=== PATIENT | female | born 1940 | race Caucasian/White ===

== ENCOUNTER 2020-09-05 07:50 | Outpatient (CLI) | payer MEDICARE, BC ==
--- NOTE | 2020-09-05 10:02 | BD ---
DEXA BONE DENSITY STUDY: HISTORY: Postmenopausal. FINDINGS: Lumbar Spine: BMD (g/cm2) L1 0.946 T-Score: -0.4 L2 1.009 T-Score: -0.2 L3 1.012 T-Score: -0.7 L4 0.924 T-Score: -1.2 L1-L4 0.971 T-Score: -0.7 Femoral Neck: 0.637 T-Score: -1.9 Total Femur: -1.3 T-Score: Impression: 1. Osteopenia of the left femoral neck and normal density of the lumbar spine. 2. Ten-year fracture risk of a major osteoporotic fracture 15% and of a hip fracture 4%. These frac ture probabilities are calculated for an untreated patient. POS: [place]
--- NOTE | 2020-09-05 11:32 | MMO ---
Bilateral MAMMO Bilat Screen [facility]. CLINICAL HISTORY: Patient is 80 years old and is seen for screening. The patient has the following family history of breast cancer: sister, at age 65. The patient has a history of ovarian cancer at age 43. The patient has a history of right Excisional Biopsy at age 77 and left Excisional Biopsy in 25 YEARS AGO. VIEWS: The views performed were: bilateral craniocaudal with tomosynthesis and bilateral mediolateral oblique with tomosynthesis. FILMS COMPARED: The present examination has been compared to prior imaging studies performed at [facility] [place] on 06/21/2018, 07/05/2018, 07/09/2018 and 08/29/2019. This study has been interpreted with the assistance of computer-aided detection. MAMMOGRAM FINDINGS: There are scattered fibroglandular densities. Benign calcifications are noted bilaterally. There are stable leftpost-operative changes. Right biopsy clips are stable. There are no suspicious masses, suspicious calcifications, or new areas of architectural distortion. IMPRESSION: THERE IS NO MAMMOGRAPHIC EVIDENCE OF MALIGNANCY. A ROUTINE FOLLOW-UP MAMMOGRAM IN 1 YEAR IS RECOMMENDED. THE RESULTS OF THIS EXAM WERE SENT TO THE PATIENT. ACR BI-RADS Category 2 - Benign finding MAMMOGRAPHY NOTE: 1. A negative mammogram report should not delay a biopsy if a dominant of clinically suspicious mass is present. 2. Approximately 10% to 15% of breast cancers are not detected by mammography. 3. Adenosis and dense breasts may obscure an underlying neoplasm. Reported by: HARMEET EASTON MD Electonically Signed: [id number]
== END 2020-09-05 07:51 | disposition home or self-care (01) ==
LOC: BICMAMMO 07:50
PROVIDERS: ATTEND Registered Nurse Community Health
DX: Z12.31 Encounter for screening mammogram for malignant neoplasm of breast (principal); Z13.820 Encounter for screening for osteoporosis; M85.852 Other specified disorders of bone density and structure, left thigh
CPT/HCPCS: 77063; 77067; 77080